=== PATIENT | male | born 1970 | race Caucasian/White ===

== ENCOUNTER 2016-03-17 19:13 | Emergency (ER) | payer OTHER ==
--- NOTE | 2016-03-17 19:38 | UC ---
Complaint Male HPI - HPI Summary HPI Summary: complaint of pain with urination that started 2-3 days ago increased frequency and urgency of urination started to have blood in urine this morning denies fever but has felt some chills for the last couple of hours left flank pain intermittent yesterday flank pain is worse when sitting when moving doesn't hurt as much denies abdominal pain has increased his fluids with some relief today - History of Current Complaint Chief Complaint: UCGU Stated Complaint: BLOOD IN URINE Time Seen by Provider: 03/17/16 19:21 Hx Obtained From: Patient - Allergies/Home Medications Allergies/Adverse Reactions: Allergies Allergy/AdvReac Type Severity Reaction Status Date / Time No Known Allergies Allergy Verified 03/17/16 19:19 Home Medications: Home Medications Ibuprofen TAB* [Advil TAB*] 400 mg PO PRN 03/17/16 [History] PMH/Surg Hx/FS Hx/Imm Hx Previously Healthy: Yes - Surgical History Surgical History: None - Family History Known Family History: Negative: Cardiac Disease, Hypertension, Diabetes, Renal Disease - Social History Occupation: Employed Full-time Lives: With Family Alcohol Use: Daily Substance Use Type: None Smoking Status (MU): Never Smoked Tobacco Review of Systems Constitutional: Chills Skin: Negative Eyes: Negative ENT: Negative Respiratory: Negative Cardiovascular: Negative Gastrointestinal: Negative Genitourinary: Dysuria, Hematuria, Frequency, Urgency Motor: Negative Neurovascular: Negative Musculoskeletal: Negative Neurological: Negative Psychological: Negative All Other Systems Reviewed And Are Negative: Yes Physical Exam Triage Information Reviewed: Yes Appearance: No Pain Distress, Well-Nourished Vital Signs: Initial Vital Signs Temp 97.2 F 03/17/16 19:15 Pulse 124 03/17/16 19:15 Resp 18 03/17/16 19:15 BP 149/96 03/17/16 19:15 Vital Signs Reviewed: Yes Eyes: Positive: Conjunctiva Clear ENT: Positive: Normal ENT inspection Neck: Positive: No Lymphadenopathy Respiratory: Positive: Lungs clear, Normal breath sounds, No respiratory distress Cardiovascular: Positive: No Murmur, Tachycardia Abdomen Description: Positive: Nontender, No Organomegaly, Soft. Negative: CVA Tenderness (R), CVA Tenderness (L), Distended, Guarding Bowel Sounds: Positive: Present Musculoskeletal: Positive: No Edema Neurological: Positive: Alert Psychological Exam: Normal Skin Exam: Normal Re-Evaluation - Re-Evaluation First Eval Change: Improved Second Eval Re-Evaluation Time: 09:25 Change: Improved - HR improved 109, pt now febrile tylenol given Complaint Male Course/Dx - Course Course Of Treatment: exam completed. given fluid bolus and rocephin to rehydrate pt as he is tachycardic. will start cipro d/t risk of prostatitis and have him followup with urologist - Differential Dx/Diagnosis Differential Diagnosis/HQI/PQRI: Prostatitis, Pyelonephritis, Ureteral Calculi, Urinary Tract Infection Provider Diagnoses: UTI, pyleonephritis Discharge - Discharge Plan Condition: Stable Disposition: HOME Prescriptions: Ciprofloxacin TAB* [Cipro Tab*] 500 mg PO BID #14 tab Patient Education Materials: Urinary Tract Infection in Men (ED), Acute Pyelonephritis (ED) Referrals: No Primary Care Phys,NOPCP [Primary Care Provider] - Jack Colvin MD [Medical Doctor] - Additional Instructions: Please take antibiotic as directed. Increase fluids and rest Take acetaminophen or ibuprofen for fever or pain Please review your discharge instructions. It is important that you followup with urologist please call to make an appointment. If your symptoms do not improve please call your primary care provider or return to urgent care.
[2016-03-17] MEDS ORDERED: NS 0.9% 1000 ML* 1,000 ML IV ONE (19:56)
[2016-03-17] MEDS ORDERED: cefTRIAXone VIAL(*) 1,000 MG in NS 0.9% 50 ML* 50 ML IVPB ONE (19:57)
[2016-03-17] MEDS ORDERED: cefTRIAXone VIAL(*) 1,000 MG VIAL ONE ×2 (20:04→20:11)
[2016-03-17] MEDS ORDERED: Acetaminophen TAB* 325 MG PO ONE (21:03)
[2016-03-17 21:30] VITALS: BP 141/88
== END 2016-03-17 21:10 | disposition home or self-care (01) ==
LOC: UCEAST 19:13
DX: N39.0 Urinary tract infection, site not specified (principal); R31.9 Hematuria, unspecified; N10 Acute pyelonephritis
CPT/HCPCS: 81002; 87077; 87086; 87186; 96360; 96374; 99202; A9270-GY; G0463; J0696

== ENCOUNTER 2016-09-18 13:19 | Emergency (ER) | payer OTHER ==
--- NOTE | 2016-09-18 15:57 | RAD ---
INDICATION: Left lower extremity erythema and pain. COMPARISON: There are no prior studies available for comparison. TECHNIQUE: Multiple real-time, color flow and Doppler tracings of the left lower extremity were obtained. FINDINGS: The common femoral, femoral, profunda femoral and popliteal veins all demonstrate normal compressibility, augmentation with compression and phasic response with respiration. The posterior tibial and peroneal veins demonstrate normal compressibility and augmentation with compression. IMPRESSION: NO EVIDENCE FOR DEEP VENOUS THROMBOSIS.
[2016-09-18 16:16] VITALS: BP 144/92
--- NOTE | 2016-09-18 16:19 | ED ---
Lower Extremity - HPI Summary HPI Summary: Patient was sent here by his physicians office to r/o DVT. He states he noticed some "muscular pain" around the left knee and behind the knee for a few days. He is ambulating, but with pain and states he must shuffle. Denies taking medications or using ice or heat for relief. Denies travel, smoking history or known malignancy. He is otherwise healthy. Pain is located near the knee and radiates down the left calf and intermittently to the left lateral thigh. Patient denies other symptoms, known injury or trauma. He denies previous surgeries on the knee. He was seen at his physicians office and the left calf measured larger than the right. Denies erythema or warmth or known bug bites. - History of Current Complaint Chief Complaint: EDExtremityLower Stated Complaint: LEFT LEG PAIN Time Seen by Provider: 09/18/16 14:11 Hx Obtained From: Patient Mechanism Of Injury: Unknown Onset of Pain: Days Onset/Duration: Days Severity Initially: Moderate Severity Currently: Moderate Pain Intensity: 4 Pain Scale Used: 0-10 Numeric Timing: Constant Location: Is Discrete @ - left calf pain Associated Signs And Symptoms: Positive: Negative Aggravating Factor(s): Standing, Ambulation Alleviating Factor(s): Rest - Risk Factors Gout Risk Factors: Age Over 40, Male DVT Risk Factors: Negative Septic Arthritis Risk Factor: Negative - Allergies/Home Medications Allergies/Adverse Reactions: Allergies Allergy/AdvReac Type Severity Reaction Status Date / Time No Known Allergies Allergy Verified 03/17/16 19:19 PMH/Surg Hx/FS Hx/Imm Hx Previously Healthy: Yes Infectious Disease History: No Infectious Disease History: Denies: Traveled Outside the [place] in Last 30 Days - Family History Known Family History: Negative: Cardiac Disease, Hypertension, Diabetes, Renal Disease - Social History Occupation: Employed Full-time Lives: With Family Alcohol Use: Daily Hx Substance Use: No Substance Use Type: Reports: None Hx Tobacco Use: No Smoking Status (MU): Never Smoked Tobacco Do You Chew or Dip Tobacco: No Review of Systems Constitutional: Negative Eyes: Negative Cardiovascular: Negative Respiratory: Negative Positive: no symptoms reported, see HPI Positive: Myalgia - left calf pain Skin: Negative Neurological: Negative All Other Systems Reviewed And Are Negative: Yes Physical Exam Triage Information Reviewed: Yes Vital Signs On Initial Exam: Initial Vitals Temp Pulse Resp BP Pulse Ox 98.5 F 95 17 113/95 97 09/18/16 13:28 09/18/16 13:28 09/18/16 13:28 09/18/16 13:28 09/18/16 13:28 Vital Signs Reviewed: Yes Appearance: Positive: Well-Appearing, Well-Nourished Skin: Positive: Warm, Skin Color Reflects Adequate Perfusion Head/Face: Positive: Normal Head/Face Inspection Eyes: Positive: EOMI, MANJU, Conjunctiva Clear Neck: Positive: Supple, Nontender, No Lymphadenopathy Respiratory/Lung Sounds: Positive: Clear to Auscultation, Breath Sounds Present Cardiovascular: Positive: Normal, RRR, Pulses are Symmetrical in both Upper and Lower Extremities Musculoskeletal: Positive: Normal, Strength/ROM Intact, Pain @ - left calf + homans sign Neurological: Positive: Normal, Sensory/Motor Intact Psychiatric: Positive: Normal AVPU Assessment: Alert - Mega Coma Scale Best Eye Response: 4 - Spontaneous Best Motor Response: 6 - Obeys Commands Best Verbal Response: 5 - Oriented Diagnostics - Vital Signs Vital Signs Temp Pulse Resp BP Pulse Ox 09/18/16 14:10 98.5 F 95 16 113/95 97 09/18/16 13:28 98.5 F 95 17 113/95 97 - Laboratory Lab Statement: Any lab studies that have been ordered have been reviewed, and results considered in the medical decision making process. Lower Extremity Course/Dx - Course Course Of Treatment: Sent here by physicians office to r/o DVT for left calf pain+homans sign. US negative for DVT. Encouraged heat, ibuprofen and note given for work. - Diagnoses Differential Diagnosis/HQI/PQRI: Positive: Bursitis, Fracture (Closed), Fracture (Open), Sprain, Strain Provider Diagnoses: Calf pain Discharge - Discharge Plan Condition: Stable Disposition: HOME Patient Education Materials: Muscle Strain (ED) Forms: *Work Release Referrals: No Primary Care Phys,NOPCP [Primary Care Provider] - Additional Instructions: Warm compresses to the area Ibuprofen 600mg three times daily Rest as much as possible Follow up with PCP for any worsening symptoms
== END 2016-09-18 16:15 | disposition home or self-care (01) ==
LOC: ED 13:19
DX: M79.662 Pain in left lower leg (principal)
CPT/HCPCS: 99281